=== PATIENT | male | born 1970 | race Caucasian/White ===

== ENCOUNTER 2018-01-22 20:31 | Emergency (ER) | payer OTHER ==
[~2018-01-22] VITALS: Ht 180.3 cm; Wt 83.8 kg
[~2018-01-22 20:31] MED LIST: ALBUTEROL SULF8.5 GM IH; ALEVE220 M2 PO; ASCORBIC ACID500 M3 PO; GABAPENTIN300 MG PO; GLUCOPHAGE500 MG PO; LISINOPRIL10 MG PO; METFORMIN HCL500 MG PO; NAPROXEN500 MG PO; NOVOLIN,HU100 UNITS/ SC; NOVOLOG MI100 UNIT/4 SC; NOVOLOG MI100 UNIT/4 SQ; TYLENOL EXTRA500 MG PO
[2018-01-22 21:52] LABS: BASOPHIL (%) 0.5 % (0-1); EOSINOPHIL (%) 3.2 % (0-5); EOSINOPHIL COUNT 0.2 K/uL (0-0.3); HEMATOCRIT 39.4 % (38.0-50.0); HEMOGLOBIN 14.7 G/DL (12.5-16.6); IMMATURE GRANULOCYTE (%) 0.3 % (0.0-0.7); LYMPHOCYTE (%) 27.6 % (15-42); LYMPHOCYTE COUNT 1.7 K/uL (1.0-2.8); MCH 32.8 PG (29.0-34.0); MCHC 37.3 G/DL (30.0-36.0); MCV 87.9 FL (86-99); MONOCYTE (%) 6.9 % (3-12); MONOCYTE COUNT 0.4 K/uL (0-0.8); NEUTROPHIL (%) 61.5 % (45-76); NEUTROPHIL COUNT 3.7 K/uL (1.8-6.4); PLATELET COUNT 144 K/uL (156-360); RBC DIS.WIDTH-CV 12.3 % (11.8-14.6); RBC DIS.WIDTH-SD 39.5 % (39-53); RED BLOOD COUNT 4.48 M/uL (4.00-5.50)
[2018-01-22 22:08] LABS: CHLORIDE 101 mEq/L (99-109); POTASSIUM 3.5 mEq/L (3.7-5.4); SODIUM 138 mEq/L (136-147)
[2018-01-22 22:14] LABS: CREATININE 1.1 mg/dL (0.6-1.3); GFR ESTIMATE (CALCULATED) > 59 mL/min/ (58.99-99999)
[2018-01-22 22:15] LABS: UREA NITROGEN (BUN) 13 mg/dL (9-23)
[2018-01-22 22:22] LABS: GLUCOSE 429 mg/dL (70-99)
[2018-01-22] MEDS ORDERED: BACTRIM,SEPT1 TABLET PO (22:49)
[2018-01-22] MEDS ORDERED: CIPRO500 MG PO (22:49)
[2018-01-23 01:05] VITALS: BP 130/83
== END 2018-01-23 01:05 | disposition left against medical advice (07) ==
LOC: EME 20:31
PROVIDERS: Physician Assistant
DX: L03.115 Cellulitis of right lower limb (principal); L97.512 Non-pressure chronic ulcer of other part of right foot with fat layer exposed; E11.65 Type 2 diabetes mellitus with hyperglycemia; Z91.19 Patient's noncompliance with other medical treatment and regimen; M19.071 Primary osteoarthritis, right ankle and foot; I10 Essential (primary) hypertension; E78.5 Hyperlipidemia, unspecified; E78.00 Pure hypercholesterolemia, unspecified; Z88.6 Allergy status to analgesic agent
CPT/HCPCS: 73630; 80048; 82948; 83605; 85025; 87040; 99281; 99285; J2543; J3370; J7030